=== PATIENT | male | born 1950 | race Caucasian/White ===

== ENCOUNTER 2018-08-30 08:47 | Observation (INO) | payer OTHER ==
[2018-08-30] VITALS (15 sets, daily range): BP systolic 109–149; BP diastolic 54–87; PULSE 48–66; RESP 14–25; Ht 175.3 cm; Wt 70.3 kg
[~2018-08-30] VITALS: Ht 175.3 cm; Wt 70.3 kg
[~2018-08-30 08:47] MED LIST: APRESOLINE; ASPI-650 PO; DOCU-159 PO; METO-335 PO; PANTOPRAZOLE; PLAVIX; [UNRECOGNIZED DRUG - REMARK] PO; atorvastatin PO; zanax PO
[2018-08-30] MEDS ORDERED: LOSA50TA14 ORAL (09:40)
[2018-08-30] MEDS ORDERED: ATOR40TA68 ORAL (09:40)
[2018-08-30] MEDS ORDERED: ESCI20TA38 ORAL (09:40)
[2018-08-30] MEDS ORDERED: CLOP75TA27 PO (09:40)
[2018-08-30] MEDS ORDERED: METO-336 ORAL (09:40)
[2018-08-30] MEDS ORDERED: OMEP20CA16 PO (09:44)
[2018-08-30] MEDS ORDERED: ALPR0.254 PO (09:44)
[2018-08-30] MEDS ORDERED: IODIXANOL LOCM 100 ML BTL ONE (11:18)
[2018-08-30] MEDS ORDERED: LIDOCAINE 1% (MDV) 20 ML INJ ONE (11:18)
[2018-08-30] MEDS ORDERED: FENTAnyl 50 MCG/ML VIAL ONE (11:20)
[2018-08-30] MEDS ORDERED: MIDAZOLAM 1 MG/ML 2 ML INJ ONE (11:20)
[2018-08-30] MEDS ORDERED: IOHEXOL 350MG/ML 50 ML BTL ONE (11:55)
[2018-08-30] MEDS ORDERED: HEPARIN 1000 UNITS/ML 10 ML INJ ONE (11:55)
[2018-08-30] MEDS ORDERED: SOD CHLORIDE 0.9% 1,000 ML IV SCH (12:22)
[2018-08-30] MEDS ORDERED: morphine 2 MG INJ IV PRN (12:30)
[2018-08-30] MEDS ORDERED: ALPRAZOLAM 0.25 MG TAB PO PRN (12:30)
--- NOTE | 2018-08-30 12:34 | OPR ---
Date/Time of Note Date/Time of Note DATE: 08/30/18 TIME: 12:27 Operative Report Procedure Date: Aug 30, 2018 Preoperative Diagnosis ANGINA ABNORMAL STRESS TEST Postoperative Diagnosis same Operation/Procedure Performed PTCA LAD Surgeon see signature line Furnace Erector analy Anesthesia Type: moderate sedation Estimated Blood Loss: minimal Transfusion none Specimen NONE Grafts/Implants none Complications none Procedure Description Scout: Jaime De La Cruz MD Indication: 67-year-old gentleman with history of coronary artery disease status post anterior ST elevation myocardial infarction with history of PCI to the LAD with record of angina pain and abnormal stress showing LAD ischemia. Procure performed: #1 left heart catheterization and selective right and left coronary angiogram #2 Right femoral angiogram and closure using a Perclose device 3. Successful PTCA of proximal left anterior descending artery stent using a 3 x 8 mm noncompliant balloon 4. Unsuccessful PCI of the mid LAD which was chronic total occlusion and was jailed by the LAD stent into the diagonal 5. Moderate sedation for more than 60 minutes Findings: 1. Left main: Has 40% distal stenosis which was previously reported 2. LAD: has a stent that goes from proximal LAD into the proximal diagonal and jailed to the mid LAD. Proximal portion of the stent had about 70% stenosis. After successful angioplasty of this lesion no significant residual stenosis left. LAD after the diagonal is 100% occlusion. Appears to be occluded by the stent. It was a chronic total occlusion and attempt to cross into the lesion was unsuccessful. There is some left to left collaterals noted to 3. Left circumflex artery: is nondominant. it has 40% ostial stenosis 4. RCA: is large and dominant. it has 20 % stenosis 5. LVEDP is 28 no significant gradient across the aortic valve Procedure in detail: Written informed consent with obtained after risks benefits and alternatives dis cussed with the patient in detail. risks including but not limited to risk of infection vascular complications, bleeding complications, [place] stroke arrhythmia renal failure at even were discussed with the patient in detail. Patient was brought into the cardiac supervisor laboratory and placed in supine position. Right and left groin area was prepped and draped in regular sterile fashion and then he was in anesthetized using 1% lidocaine. Right femoral artery was cannulated and using modified seldinger technique a 6 Cymro sheath was placed in the femoral artery. Femoral angiogram was performed JL4 guiding catheter was advanced to engage the left main coronary artery angiographic view was obtained. JR4 catheter was advanced and engaged into the right coronary artery and angiographic view was obtained. Then a JR4 was advanced to engage the left ventricle hemodynamics as recorded by pullback aortic pressure was measured. At this time we decided to perform PCI of the LAD artery. Changed the sheath to a long 7 Cymro sheath after a Perclose was used to preclosed the sheath. A 7 Cymro Voda 3-1/2 guiding catheter was advanced to engage the main coronary artery. Multiple different wires were used to try to advance into the chronic total occlusion of the mid LAD through the struts of the stent. It was unsuccessful. Then the wire was advanced into the diagonal. Then I used a 3 X8 millimeter noncompliant balloon possibly within the stent dilated up to 16 at 18 cristobal Final angiographic view was obtained which showed CARLIE-3 flow no evidence of dissection and no significant residual stenosis at the site of the stent. perclose was successfully deployed. Patient tolerated the procedure well with no complication. Patient was transferred to recovery in stable condition. contrast used: 80 cc Visipaque Conclusions: Successful PTCA of the proximal LAD stent from 70% in-stent stenosis to no significant residual stenosis using a 3 x 8 mm noncompliant balloon. Recommendations: Aggressive medical therapy. aspirin indefinitely JAIME DE LA CRUZ MD [facility] JAIME DE LA CRUZ MD Aug 30, 2018 12:34
--- NOTE | 2018-08-30 14:25 | RADRPT ---
Vent Rate: 51 bpm RR Interval: 0 msec CA Interval: 90 msec QRS Duration: 150 msec QT Interval: 496 msec QTC Interval: 457 msec P-R-T [place]: 3 - -83 - -85 degrees Electronic atrial pacemaker Right bundle branch block Left anterior fascicular block Bifascicular block Septal infarct , age undetermined T wave abnormality, consider inferolateral ischemia Abnormal ECG Electronically Signed By: Saeed Newsome
--- NOTE | 2018-08-30 14:42 | HP ---
Date/Time of Note Date/Time of Note DATE: 08/30/18 TIME: 14:27 Assessment/Plan VTE Prophylaxis Risk score (from [facility])>0 risk: 3 SCD applied (from [facility]): Yes Pharmacological prophylaxis: NA/contraindicated Pharm contraindication: low risk/ambulating Lines/Catheters IV Catheter Type (from [facility]): Peripheral IV Assessment/Plan Assessment/Plan 67-year-old male with: 1. Chronic angina, abnormal stress test and known CAD, status post successful balloon angioplasty of the proximal LAD in-stent stenosis Patient doing well, previous home medication being resumed and patient to be admitted to the intensive care unit for overnight observation. If remains stable in a.m., discharge plan would be for home tomorrow. 2. Coronary artery disease: Resuming home medication past elective PTCA today. 3. Sinus syndrome, status post PPM: Stable 4. Hypertension: Continue home medications 5. Hyperlipidemia: Continue home medications 6. GERD: Continue home medications 7. OCD: Continue home medications Prophylaxis: SCDs for DVT prophylaxis, on PPI. Disposition: Observation in ICU overnight and likely discharge planning home tomorrow. Result Diagram: 08/30/1815 08/30/18 0930 Results 24hrs Laboratory Tests Test 08/30/18 09:15 08/30/18 09:30 White Blood Count 5.8 Red Blood Count 4.24 L Hemoglobin 13.4 L Hematocrit 40.8 L Mean Corpuscular Volume 96.2 Mean Corpuscular Hemoglobin 31.6 Mean Corpuscular Hemoglobin Concent 32.8 Red Cell Distribution Width 12.7 Platelet Count 134 L Mean Platelet Volume 11.0 H Immature Granulocytes % 0.300 Neutrophils % 70.7 Lymphocytes % 17.9 Monocytes % 8.3 Eosinophils % 2.3 Basophils % 0.5 Nucleated Red Blood Cells % 0.0 Immature Granulocytes # 0.020 Neutrophils # 4.1 Lymphocytes # 1.0 Monocytes # 0.5 Eosinophils # 0.1 Basophils # 0.0 Nucleated Red Blood Cells # 0.0 Prothrombin Time 13.3 Prothrombin Time Ratio 1.0 INR International Normalized Ratio 1.00 Activated Partial Thromboplast Time 30.1 Sodium Level 141 Potassium Level 4.0 Chloride Level 102 Carbon Dioxide Level 31 Anion Gap 8 Blood Urea Nitrogen 20 Creatinine 0.97 Est Glomerular Filtrat Rate mL/min > 60 Glucose Level 95 Calcium Level 9.1 Total Bilirubin 1.2 Direct Bilirubin 0.00 Indirect Bilirubin 1.2 H Aspartate Amino Transf (AST/SGOT) 26 Alanine Aminotransferase (ALT/SGPT) 27 Alkaline Phosphatase 56 Creatine Kinase 43 Creatine Kinase Index 1.3 Creatinine Kinase MB (Mass) 0.54 Troponin I < 0.012 Total Protein 7.1 Albumin 4.2 Globulin 2.90 Albumin/Globulin Ratio 1.44 Triglycerides Level 84 Cholesterol Level 126 LDL Cholesterol, Calculated 64 HDL Cholesterol 45 Cholesterol/HDL Ratio 2.8 HPI/ROS Admit Date/Time Admit Date/Time Aug 30, 2018 at 12:27 Hx of Present Illness Chief complaint: Angina, elective PTCA History of presenting illness: 67-year-old male with history of coronary artery disease status post stenting in the past, sick sinus syndrome status post PPM placement, hypertension, hyperlipidemia, OCD, GERD, chronic angina followed by cardiology, Dr. De La Cruz. Patient reports angina and decreased exercise tolerance over the past few weeks to month, he had a Lexiscan as an outpatient which came back abnormal with findings of LAD ischemia, patient was taken to the [facility] elect[facility] today for PTCA, he is s/p successful PTCA of the proximal LAD stent from 70% in-stent stenosis to no significant residual stenosis by a balloon angioplasty today Patient is being admitted to the intensive care unit for overnight monitoring. He currently denies any chest pain or chest pressure. No lightheadedness, no nausea or vomiting. ROS Constitutional: no complaints Eyes: no complaints ENT: no complaints Respiratory: no complaints Cardiovascular: chest pain Gastrointestinal: no complaints Genitourinary: no complaints Musculoskeletal: no complaints Skin: no complaints Neurologic: no complaints Endocrine: no complaints Lymphatic: no complaints Psychological: no complaints PMH/Family/Social Past Medical History Coronary artery disease Sick sinus syndrome status post PPM Hypertension Hyperlipidemia GERD OCD Medications Current Medications Morphine Sulfate (morphine) 1 mg Q1H PRN IV PAIN LEVEL 6-10; Start 08/30/18 at 12:30 Docusate Sodium (Colace) 100 mg BID PO ; Start 08/30/18 at 21:00 Sodium Chloride 1,000 ml @ 75 mls/hr [id number] IV ; Start 08/30/18 at 12:22; Stop 08/30/18 at 20:21 Alprazolam (Xanax) 0.25 mg DAILY PRN PO ANXIETY; Start 08/30/18 at 12:30 Aspirin (Aspirin) 81 mg DAILY PO ; Start 08/31/18 at 09:00 Atorvastatin Calcium (Lipitor) 40 mg QHS PO ; Start 08/30/18 at 21:00 Clopidogrel Bisulfate (plaVIX) 75 mg DAILY PO ; Start 08/31/18 at 09:00 Losartan Potassium (Cozaar) 50 mg DAILY PO ; Start 08/31/18 at 09:00 Metoprolol Succinate (Toprol Xl) 50 mg DAILY PO ; Start 08/31/18 at 09:00 Pantoprazole (Protonix Tab) 40 mg DAILY@06 PO ; Start 08/31/18 at 06:00 Coded Allergies: No Known Allergy (Unverified , 08/30/18) Past Surgical History Status post pacemaker placement 2011 Status post PCI and LAD stenting 2011 Social History Alcohol Use: none Smoking Status: Former smoker Drug Use: none Exam/Review of Systems Vital Signs Vitals Vital Signs Date Temp Pulse Resp B/P (MAP) Pulse Ox O2 O2 Flow FiO2 Time Delivery Rate 08/30/18 50 15 117/72 99 Room Air 13:28 (87) 08/30/18 98.0 12:39 Exam Constitutional: alert, oriented, well developed Respiratory: clear to auscultation, normal air movement Cardiovascular: regular rate and rhythm, nl pulses, other (PPM in place.) Gastrointestinal: soft, non-tender Musculoskeletal: nl extremities to inspection, nl gait and stance Extremities: normal pulses, other (No edema, clubbing or cyanosis) Neurological: [employer] HE[employer]GER II-XII intact, nl mental status, nl speech, nl strength KEHINDE PARISI Aug 30, 2018 14:38
[2018-08-30] MEDS: DOCUSATE SODIUM 100 MG CAP PO SCH (20:37)
[2018-08-30] MEDS ORDERED: ATORVASTATIN 40 MG TAB PO SCH (21:00)
[2018-08-31] VITALS (7 sets, daily range): BP systolic 103–147; BP diastolic 54–75; PULSE 49–56; RESP 18–19
[2018-08-31] MEDS ORDERED: PANTOPRAZOLE (EC) 40 MG TAB PO SCH (06:00)
[2018-08-31] MEDS: DOCUSATE SODIUM 100 MG CAP PO SCH (08:24)
[2018-08-31] MEDS ORDERED: NON-FORMULARY/PATIENT OWN MED (Omeprazole* 20 MG) PO SCH (09:00)
[2018-08-31] MEDS ORDERED: CLOPIDOGREL 75 MG TAB PO SCH (09:00)
[2018-08-31] MEDS ORDERED: LOSARTAN 50 MG TAB PO SCH (09:00)
[2018-08-31] MEDS ORDERED: METOPROLOL (XL) 100 MG TAB PO SCH (09:00)
[2018-08-31] MEDS ORDERED: ESCITALOPRAM 10 MG TAB PO SCH (09:00)
[2018-08-31] MEDS ORDERED: ASPIRIN 81 MG TAB PO SCH (09:00)
--- NOTE | 2018-08-31 10:56 | CONS ---
Assessment/Plan Assessment/Plan Assessment/Plan (Daily) Assessment 1) CAD 2) LAD PCI 3) HTN 4) HLP Plan: 1) continue DAPT 2) ok to dc Consultation Date/Type/Reason Admit Date/Time Aug 30, 2018 at 12:27 Initial Consult Date Type of Consult Cardiology Date/Time of Note DATE: 08/31/18 TIME: 10:54 24 HR Interval Summary Free Text/Dictation no chest pain, no sob Constitutional: no complaints Detailed Summary Respiratory: no complaints Cardiovascular: no complaints Gastrointestinal: no complaints Musculoskeletal: no complaints Skin: no complaints Neurologic: no complaints Exam/Review of Systems Vital Signs Vitals Vital Signs Date Temp Pulse Resp B/P (MAP) Pulse Ox O2 O2 Flow FiO2 Time Delivery Rate 08/31/18 56 08:08 08/31/18 98.4 18 124/75 95 Room Air 07:30 (91) Intake and Output 08/30/18 08/30/18 08/31/18 1515:00 23:00 07:00 IntakeIntake Total 150 ml 375 ml BalanceBalance 150 ml 375 ml Exam Constitutional: alert, oriented Head: normocephalic, atraumatic Neck: supple Respiratory: clear to auscultation Cardiovascular: regular rate and rhythm Gastrointestinal: soft Musculoskeletal: nl extremities to inspection Labs Result Diagram: 08/31/18 0641 08/31/18 0641 Results 24hrs Laboratory Tests Test 08/31/18 06:41 White Blood Count 6.0 Red Blood Count 3.98 L Hemoglobin 12.6 L Hematocrit 37.7 L Mean Corpuscular Volume 94.7 Mean Corpuscular Hemoglobin 31.7 Mean Corpuscular Hemoglobin Concent 33.4 Red Cell Distribution Width 12.6 Platelet Count 115 L Mean Platelet Volume 10.8 H Immature Granulocytes % 0.200 Neutrophils % 67.2 Lymphocytes % 19.6 Monocytes % 9.8 Eosinophils % 2.5 Basophils % 0.7 Nucleated Red Blood Cells % 0.0 Immature Granulocytes # 0.010 Neutrophils # 4.1 Lymphocytes # 1.2 Monocytes # 0.6 Eosinophils # 0.2 Basophils # 0.0 Nucleated Red Blood Cells # 0.0 Sodium Level 141 Potassium Level 3.8 Chloride Level 103 Carbon Dioxide Level 29 Anion Gap 9 Blood Urea Nitrogen 16 Creatinine 0.92 Est Glomerular Filtrat Rate mL/min > 60 Glucose Level 90 Calcium Level 8.5 Total Bilirubin 1.5 H Direct Bilirubin 0.00 Indirect Bilirubin 1.5 H Aspartate Amino Transf (AST/SGOT) 22 Alanine Aminotransferase (ALT/SGPT) 22 Alkaline Phosphatase 53 Total Protein 6.3 Albumin 3.5 Globulin 2.80 Albumin/Globulin Ratio 1.25 Medications Medications Current Medications Morphine Sulfate (morphine) 1 mg Q1H PRN IV PAIN LEVEL 6-10; Start 08/30/18 at 12:30 Docusate Sodium (Colace) 100 mg BID PO Last administered on 08/31/18 08:24; Admin Dose 100 MG; Start 08/30/18 at 21:00 Alprazolam (Xanax) 0.25 mg DAILY PRN PO ANXIETY; Start 08/30/18 at 12:30 Aspirin (Aspirin) 81 mg DAILY PO Last administered on 08/31/18 08:24; Admin Dose 81 MG; Start 08/31/18 at 09:00 Atorvastatin Calcium (Lipitor) 40 mg QHS PO Last administered on 08/30/18 20:38; Admin Dose 40 MG; Start 08/30/18 at 21:00 Clopidogrel Bisulfate (plaVIX) 75 mg DAILY PO Last administered on 08/31/18 08:23; Admin Dose 75 MG; Start 08/31/18 at 09:00 Losartan Potassium (Cozaar) 50 mg DAILY PO Last administered on 08/31/18 08:23; Admin Dose 50 MG; Start 08/31/18 at 09:00 Metoprolol Succinate (Toprol Xl) 50 mg DAILY PO Last administered on 08/31/18 08:25; Admin Dose 50 MG; Start 08/31/18 at 09:00 Pantoprazole (Protonix Tab) 40 mg DAILY@06 PO Last administered on 08/31/18 06:31; Admin Dose 40 MG; Start 08/31/18 at 06:00 Escitalopram Oxalate (Lexapro) 20 mg DAILY PO Last administered on 08/31/18 08:23; Admin Dose 20 MG; Start 08/31/18 at 09:00 ERIK BELLE MD Aug 31, 2018 10:56
--- NOTE | 2018-08-31 12:06 | PDOCDIS ---
Discharge Instructions DIAGNOSIS Discharge Diagnosis 1. coronary artery disease 2. in stent stenosis CONDITION [id number] Patient Condition: [id number] Good HOME CARE INSTRUCTIONS: [id number] Diet Instructions: [id number] Low Fat /Cholesterol ACTIVITY: [id number] Activity Restrictions: [id number] No Restrictions FOLLOW UP/APPOINTMENTS Follow-up Plan 1. dr irvin as scheduled JAZMÍN ORANTES MD Aug 31, 2018 12:06
--- NOTE | 2018-08-31 12:08 | DS ---
Date/Time of Note Date/Time of Note DATE: 08/31/18 TIME: 12:07 Discharge Summary Admission/Discharge Info Admit Date/Time Aug 30, 2018 at 12:27 Discharge Date/Time 08/31/18 Discharge Diagnosis 1. coronary artery disease 2. in stent stenosis Patient Condition: Good Procedures coronary angiogram with angioplasty to in stent stenosis LAD Hospital Course patient admitted with abnormal stress test, had angiogram and angioplasty, tolerated well and d/c home (please see dr irvin procedure report 08/30/18 for further details) Home Meds Reported Medications Alprazolam* (Alprazolam*) 0.25 Mg Tablet, 0.25 MG PO DAILY PRN for ANXIETY, TAB 08/30/18 Omeprazole* (Omeprazole*) 20 Mg Capsule.dr, 20 MG PO DAILY, #30 CAP 08/30/18 Clopidogrel Bisulfate (Clopidogrel) 75 Mg Tablet, 75 MG PO DAILY, #30 TAB 08/30/18 Atorvastatin* (Atorvastatin*) 40 Mg Tablet, 1 TAB ORAL DAILY 08/30/18 Escitalopram Oxalate* (Escitalopram Oxalate*) 20 Mg Tablet, 1 TAB ORAL DAILY 08/30/18 Metoprolol Succinate* (Toprol XL*) 100 Mg Tab.sr.24h, 1 TAB ORAL DAILY 08/30/18 Losartan Potassium* (Losartan Potassium*) 50 Mg Tablet, 1 TAB ORAL DAILY 08/30/18 Aspirin (Aspirin) 81 Mg Tablet, 81 MG PO DAILY 05/13/12 Discontinued Reported Medications [Pantoprazole] No Conflict Check UNK DOSE 10/02/12 [Plavix] No Conflict Check UNK DOSE 10/02/12 [Apresoline] No Conflict Check UNK DOSE 10/02/12 [Unknown Antibiotics] No Conflict Check, PO 10/02/12 [zanax] No Conflict Check, 0.25 MG PO Q4 PRN 05/13/12 [atorvastatin] No Conflict Check, 40 MG PO DAILY 05/13/12 Docusate Sodium* (Docusate Sodium*) 100 Mg Capsule, 100 MG PO DAILY 05/13/12 Metoprolol Succinate* (Toprol XL*) 25 Mg Tab.sr.24h, 25 MG PO DAILY, BOX 05/13/12 Follow-up Plan 1. dr irvin as scheduled Primary Care Provider James Sheffield MD Time spent on discharge: < 30 minutes Pending Labs Laboratory Tests Test 08/31/18 06:41 White Blood Count 6.0 10^3/ul (4.8-10.8) Red Blood Count 3.98 10^6/ul (4.70-6.10) Hemoglobin 12.6 g/dl (14.0-18.0) Hematocrit 37.7 % (42.0-52.0) Mean Corpuscular Volume 94.7 fl (82.0-101.0) Mean Corpuscular Hemoglobin 31.7 pg (29.0-33.0) Mean Corpuscular Hemoglobin Concent 33.4 g/dl (32.0-37.0) Red Cell Distribution Width 12.6 % (11.5-14.5) Platelet Count 115 10^3/UL (140-415) Mean Platelet Volume 10.8 fl (7.4-10.4) Immature Granulocytes % 0.200 % (0.001-0.429) Neutrophils % 67.2 % (39.0-77.0) Lymphocytes % 19.6 % (15.0-51.0) Monocytes % 9.8 % (0.0-11.0) Eosinophils % 2.5 % (0.0-7.0) Basophils % 0.7 % (0.0-2.0) Nucleated Red Blood Cells % 0.0 /100WBC (0.0-0.0) Immature Granulocytes # 0.010 10^3/ul (0.0-0.031) Neutrophils # 4.1 10^3/ul (1.6-7.5) Lymphocytes # 1.2 10^3/ul (0.8-2.9) Monocytes # 0.6 10^3/ul (0.3-0.9) Eosinophils # 0.2 10^3/ul (0.0-0.5) Basophils # 0.0 10^3/ul (0.0-0.1) Nucleated Red Blood Cells # 0.0 10^3/ul (0.0-0.0) Sodium Level 141 mmol/L (135-144) Potassium Level 3.8 mmol/L (3.5-5.1) Chloride Level 103 mmol/L (97-110) Carbon Dioxide Level 29 mmol/L (21-31) Anion Gap 9 (5-13) Blood Urea Nitrogen 16 mg/dl (7-20) Creatinine 0.92 mg/dl (0.61-1.24) Est Glomerular Filtrat Rate mL/min > 60 mL/min (>60) Glucose Level 90 mg/dl (70-220) Calcium Level 8.5 mg/dl (8.4-10.2) Total Bilirubin 1.5 mg/dl (0.2-1.3) Direct Bilirubin 0.00 mg/dl (0.00-0.20) Indirect Bilirubin 1.5 mg/dl (0-1.1) Aspartate Amino Transf (AST/SGOT) 22 IU/L (15-46) Alanine Aminotransferase (ALT/SGPT) 22 IU/L (13-69) Alkaline Phosphatase 53 IU/L (42-121) Total Protein 6.3 g/dl (6.1-8.1) Albumin 3.5 g/dl (3.3-4.9) Globulin 2.80 g/dl (1.3-3.2) Albumin/Globulin Ratio 1.25 JAZMÍN ORANTES MD Aug 31, 2018 12:08
== END 2018-08-31 14:24 | disposition home or self-care (01) ==
LOC: SDS 08:47 → REC 12:27 → TEL 19:06
PROVIDERS: ADMIT Internal Medicine Interventional Cardiology; ATTEND Internal Medicine Interventional Cardiology
DX: I25.10 Atherosclerotic heart disease of native coronary artery without angina pectoris (principal); Z95.5 Presence of coronary angioplasty implant and graft; I10 Essential (primary) hypertension; E78.5 Hyperlipidemia, unspecified; K21.9 Gastro-esophageal reflux disease without esophagitis; F42.9 Obsessive-compulsive disorder, unspecified
CPT/HCPCS: 80053; 80061; 82550; 82553; 84484; 85025; 85610; 85730; 92943; 93005; 93458; C1725; C1887; C1894; G0378; J1644; J2250; J3010; Q9967